=== PATIENT | female | born 1990 | race Caucasian/White ===

== ENCOUNTER 2018-01-02 10:21 | Outpatient (CLI) | payer OTHER ==
--- NOTE | 2018-01-02 12:14 | ULT ---
COMPLETE ABDOMINAL ULTRASOUND: Comparison: None. History: Abdominal pain. Abnormal labs. Technique: Multiplanar grayscale and color doppler images were obtained in a complete abdominal ultra sound. FINDINGS: The liver is normal in echogenicity without focal lesions or intrahepatic biliary dilatation. The gal lbladder is normal without stones, sludge, gallbladder wall thickening or pericholecystic fluid. The common bile duct is normal measuring 3 mm. The aorta and inferior vena cava are normal in caliber. The spleen is normal in echogenicity without focal lesions and measures 11.9 cm in length. The visualized portions of the pancreas are unremarkabl e. Both kidneys are normal in echogenicity without hydronephrosis or calculi and measure 10.5 and 11.1 c m in length on the right and left, respectively. IMPRESSION: Unremarkable exam. POS: [facility]
== END 2018-01-02 10:22 | disposition home or self-care (01) ==
LOC: SCSULT 10:21
PROVIDERS: ATTEND Family Medicine
DX: R10.9 Unspecified abdominal pain (principal); K76.89 Other specified diseases of liver; K58.2 Mixed irritable bowel syndrome
CPT/HCPCS: 76700